=== PATIENT | female | born 1990 | race African-American/Black ===

== ENCOUNTER 2019-05-05 15:04 | Emergency (ER) | payer MEDICAID ==
[~2019-05-05] VITALS: Ht 165.1 cm; Wt 67.0 kg
[2019-05-05 15:24] VITALS: BP 115/54
[2019-05-05] MEDS ORDERED: AZITHROMYCIN 500 MG TABLET PO ONE (16:15)
[2019-05-05] MEDS ORDERED: CEFTRIAXONE SODIUM 250 MG/VIAL IM ONE (16:15)
[2019-05-05] MEDS ORDERED: STERILE WATER FOR INJECTION 10ML VIAL ONE (16:31)
[2019-05-05 16:57] LABS: CLARITY URINE CLOUDY (CLEAR); COLOR URINE YELLOW (YELLOW); KETONES URINE TRACE (NEGATIVE); LEUKOCYTE ESTERASE URINE 3+ (NEGATIVE); NITRITE URINE NEGATIVE (NEGATIVE); OCCULT BLOOD URINE NEGATIVE (NEGATIVE); PROTEIN URINE NEGATIVE (NEGATIVE); SPECIFIC GRAVITY URINE 1.038 (1.005-1.030); UROBILINOGEN URINE 0.2 E.U./dL (0.2-1.0)
== END 2019-05-05 18:28 | disposition home or self-care (01) ==
LOC: ER 16:46
DX: N76.0 Acute vaginitis (principal); N39.0 Urinary tract infection, site not specified; A64 Unspecified sexually transmitted disease; N73.9 Female pelvic inflammatory disease, unspecified
CPT/HCPCS: 81003; 81025; 87210; 87491; 87591; 96372; 99283; A4216; J0696